=== PATIENT | male | born 1970 | race Caucasian/White ===

== ENCOUNTER → 2021-12-03 08:00 | Outpatient (CLI) | payer OTHER ==
[~2021-12-03] VITALS: Ht 165.1 cm; Wt 95.7 kg
[~2021-12-03 08:00] MED LIST: LOTENSIN20 MG PO; NEXIUM 24HR20 M1 PO; PERCOCET 5/321 UDTAB PO; RECTICARE30 GM TP
== END | disposition home or self-care (01) ==
LOC: LAB 08:00 → ADM 11:00 → EDSTATUS 12-09 11:00 → CIR.AMB 12-09 11:00
PROVIDERS: ATTEND Surgery
DX: K60.3 Anal fistula (principal); Z20.822 Contact with and (suspected) exposure to COVID-19

== ENCOUNTER 2022-02-24 05:58 | Day surgery (SDC) | payer OTHER ==
[~2022-02-24] VITALS: Ht 165.1 cm; Wt 96.6 kg
[2022-02-24] MEDS ORDERED: PERCOCET 5-3251 EACH PO (08:49)
[2022-02-24] MEDS ORDERED: METRONIDAZOLE500 MG PO (08:49)
[2022-02-24] MEDS ORDERED: RECTICARE30 GM TOP (08:49)
[2022-02-24] MEDS ORDERED: ULTRACET PO (10:19)
== END 2022-02-24 12:30 | disposition home or self-care (01) ==
LOC: CIR.AMB 05:58
PROVIDERS: ATTEND Surgery
DX: K60.3 Anal fistula (principal); Z20.822 Contact with and (suspected) exposure to COVID-19; I10 Essential (primary) hypertension; Z86.16 Personal history of COVID-19; K21.9 Gastro-esophageal reflux disease without esophagitis